=== PATIENT | male | born 1955 | race Caucasian/White ===

== ENCOUNTER 2024-11-18 12:08 | Emergency (ER) | payer MEDICARE, SELFPAY ==
--- NOTE | ~2024-11-18 | CT_ITS ---
Exam: CT abdomen and pelvis with contrast Clinical History: [Left flank pain. Left upper quadrant abdominal pain. Question recent stone ] Comparison: [ None available] Technique: Multiple axial CT images of the abdomen and pelvis were obtained with IV contrast. Sagittal and coronal reformatted images were obtained. FINDINGS: Lung bases: [Small left-sided pleural effusion. Moderate-sized consolidation in the left lower lobe. Small patchy opacities in the remaining portions of the visualized lower lungs. ] Liver: [ No mass.] [ No intrahepatic biliary duct dilatation.] Gallbladder: [ No wall thickening or stones.] Common bile duct: [ Normal caliber.] [ No stones.] Spleen: [ Within normal limits.] Pancreas: [ No mass. No pancreatic fluid collection.] Adrenals: [ No masses.] Kidneys: [ No masses. No hydronephrosis.][ There is a 9.1 cm left renal cyst in the superior pole of the left kidney.] Tiny bilateral nonobstructing renal stones. Lymph nodes: [ No adenopathy in the abdomen or pelvis.] Stomach, small bowel and colon: [ No bowel wall thickening or obstruction.] Peritoneum cavity: [ No mesenteric fat stranding or fluid.] Bladder: [ Unremarkable.] Prostate gland is moderately enlarged and partially calcified. Osseous structures: [ No acute fracture or destructive lesion.] [ Multilevel degenerative change in the visualized spine.] Abdominal aorta: [ No aneurysm.] Additional findings: Large right inguinal hernia with fat and bowel loops within the hernia sac. No bowel obstruction at this time. IMPRESSION: 1. Moderate-sized consolidation in the left lower lobe. Differential includes atelectasis and/or pneumonia. Recommend follow-up to resolution to exclude an underlying mass. 2. Small patchy opacities in the remaining portions of the lower lungs which represent atelectasis or infiltrates. 3. Small left-sided pleural effusion. 4. There is a 9.1 cm left renal cyst in the superior pole of the left kidney. 5. Tiny bilateral nonobstructing renal stones. 6. Large right inguinal hernia with fat and bowel loops within the hernia sac. No bowel obstruction at this time. 7. Prostate gland is moderately enlarged and partially calcified. If symptoms persist or worsen, consider a short-term follow-up study or additional imaging for further assessment. Reviewed, dictated and finalized at location Q. IMPRESSION: 1. Moderate-sized consolidation in the left lower lobe. Differential includes a telectasis and/or pneumonia. Recommend follow-up to resolution to exclude an un derlying mass. 2. Small patchy opacities in the remaining portions of the lower lungs which re present atelectasis or infiltrates. 3. Small left-sided pleural effusion. 4. There is a 9.1 cm left renal cyst in the superior pole of the left kidney. 5. Tiny bilateral nonobstructing renal stones. 6. Large right inguinal hernia with fat and bowel loops within the hernia sac. No bowel obstruction at this time. 7. Prostate gland is moderately enlarged and partially calcified. If symptoms persist or worsen, consider a short-term follow-up study or additio nal imaging for further assessment.
[2024-11-18 12:09] VITALS: BP 182/70; PULSE 105; RESP 28; TEMP 37.6; O2SAT 99
--- NOTE | 2024-11-18 12:25 | ED.ABDPAIN ---
HPI - Abdominal Pain General Chief Complaint: Abdominal Pain Stated Complaint: SHAKING Time Seen by Provider: 11/18/24 12:15 Source: patient and EMS Mode of arrival: EMS Limitations: no limitations History of Present Illness HPI narrative: This is a 69-year-old male with history of kidney stones and BPH who presents to the ED for left flank/left upper quadrant abdominal pain that worsened this morning. He states that he had this pain a week ago and was seen at an ED for this were a HIDA scan that did reveal some kidney stones. States he was discharged home was feeling better up until this morning. The pain has not migrated. Denies fevers, chills, nausea, vomiting, diarrhea, constipation. No prior surgeries. Related Data Allergies Allergy/AdvReac Type Severity Reaction Status Date / Time No Known Allergies Allergy Verified 11/18/24 12:12 Review of Systems Review of Systems: Gen.: Denies fevers or chills Eyes: Denies eye pain or visual change ENT: Denies congestion Respiratory: Denies shortness of breath or cough CV: Denies chest pain or palpitations GI: As per HPI denies burning, urgency, frequency or hematuria Musculoskeletal: Denies back pain or muscle pain Neuro: Denies numbness, tingling, weakness or focal weakness Skin: Denies rash Except as documented, all other systems reviewed and negative Exam Narrative: APPEARANCE: No acute distress, nontoxic, resting in bed EYES: EOMI HEENT: Normocephalic, atraumatic, OMM RESPIRATORY: No respiratory distress Clear to auscultation bilaterally with no rhonchi wheezing or rales. CARDIOVASCULAR: Regular rate and rhythm without murmurs rubs or gallops. ABDOMINAL: Soft, mild left upper quadrant tenderness to palpation. Negative CVA tenderness bilaterally. MUSCULOSKELETAl: Moves all extremities. No clubbing, cyanosis or edema. NEURO: Awake and alert. Following commands, speech normal, no focal deficits SKIN:: Warm, dry. No rashes lesions or abrasions PSYCHIATRIC: Normal affect/mood, Course Vital Signs Vital signs: Vital Signs Temperature 99.7 F H 11/18/24 12:09 Pulse Rate 105 H 11/18/24 12:09 Respiratory Rate 28 H 11/18/24 12:09 Blood Pressure 182/70 H 11/18/24 12:09 Pulse Oximetry 99 11/18/24 12:09 Oxygen Delivery Room Air 11/18/24 12:09 Temperature 99.7 F H 11/18/24 12:09 Pulse Rate 97 11/18/24 15:16 Respiratory Rate 20 11/18/24 15:16 Blood Pressure 121/64 11/18/24 15:16 Pulse Oximetry 94 11/18/24 15:16 Oxygen Delivery Room Air 11/18/24 12:09 MDM - Abdominal Pain MDM Narrative Medical decision making narrative: 69-year-old male presenting for left upper quadrant abdominal pain. On initial evaluation, patient was in no acute distress, afebrile but temperature 99.7?, hemodynamically stable. He is slightly tachycardic to the low 100s. He had mild left upper quadrant tenderness to palpation without CVA tenderness bilaterally. There is no rebound or guarding. He had a mild leukocytosis at 16.1 with a mild anemia 11.8. CT/pelvis did reveal a left lower lobe pneumonia with a large renal cyst. Believe that the patient's pain and borderline temperature is more consistent with a pneumonia in the setting of the leukocytosis. He will be given Augmentin. He was advised follow-up with PCP in the next week for re-evaluation. Patient was agreeable to this plan. Given strict return precautions. Differential Diagnosis Differential diagnosis: Likely other (Colitis, enterocolitis, ureterolithiasis, pyelonephritis, pneumonia) Medical Records Attestation: I reviewed the patient's medical records. Lab Data Attestation: I reviewed the patient's lab results. 11/18/24 12:37 11/18/24 12:37 Labs: Lab Results 11/18/24 11/18/24 Range/Units 12:37 14:31 WBC 16.1 H (4.5-10.0) K/mm3 RBC 4.38 L (4.6-6.20) M/mm3 Hgb 11.8 L (14.0-18.0) g/dL Hct 37.1 L (42.0-52.0) % MCV 84.7 (80-100) fl MCH 26.9 (26-34) pg MCHC 31.8 L (32-36) g/dl RDW 13.9 (11.5-14.5) % Plt Count 288 (150-375) k/mm3 MPV 9.4 (7.4-10.4) fl Immature Gran % (Auto) 0.7 H (0-0.5) % Neut % (Auto) 87.3 H (45.5-73.1) % Lymph % (Auto) 5.7 L (18.3-44.2) % [place] % (Auto) 5.5 (2.6-8.5) % Eos % (Auto) 0.4 (0-4.4) % Baso % (Auto) 0.4 (0.2-1.2) % Lymph # (Auto) 0.91 (0.9-3.2) K/mm3 [place] # (Auto) 0.9 H (0.1-0.6) K/mm3 Eos # (Auto) 0.1 (0-0.3) K/mm3 Baso # (Auto) 0.1 (0.0-0.1) K/mm3 Abs Immat Gran (auto) 0.11 H (0.00-0.031) K/mm3 Absolute Neuts (auto) 14.0 H (1.3-6.7) K/mm3 Absolute Nucleated RBC 0.000 (0.0-0.012) K/mm3 Nucleated RBC % 0.0 (0.0-0.2) % Sodium 135 L (137-145) mmol/L Potassium 4.5 (3.4-5.0) mmol/L Chloride 103 (98-107) mmol/L Carbon Dioxide 22 (22-30) mmol/L Anion Gap 10 (4-12) mmol/L BUN 20 (9-20) mg/dL Creatinine 0.72 (0.7-1.3) mg/dL Estim Creat Clear Calc 92 ml/min Estimated GFR > 60 (59 - ) Glucose 186 H (65-110) mg/dL Calcium 9.0 (8.4-10.2) mg/dL Total Bilirubin 0.8 (0.2-1.3) mg/dL AST 23 (17-59) U/L ALT 21 (6-50) U/L Alkaline Phosphatase 84 (38-126) U/L Total Protein 7.6 (6.3-8.2) g/dL Albumin 3.9 (3.5-5.1) g/dL Urine Color Yellow (Yellow) Urine Appearance Clear (Clear) Urine pH 5.5 (5.0-9.0) Ur Specific [place] > 1.045 H (1.001-1.035) Urine Protein Negative (Negative) mg/dL Urine Glucose (UA) Negative (Negative) mg/dL Urine Ketones Trace H (Negative) mg/dL Ur Blood (Man) 1+ H (Negative) Urine Nitrate Negative (Negative) Urine Bilirubin Negative (Negative) Urine Urobilinogen 1.0 (<2.0) mg/dL Leukocyte Esterase Rfl Negative (Negative) AMALIA/UL Urine RBC 6-10 H (0-2) /hpf Urine WBC 0-5 (0-3) /hpf Ur Squamous Epith Cells None seen (Few) /hpf Urine Bacteria None seen /hpf Urine Casts 0-2 Imaging Data Attestation: I personally reviewed and interpreted this imaging study as follows: (CT chest: Consolidation within left lower lobe. Large simple renal cyst to the left kidney.) Radiologist's impression: ITS Impressions Abdomen/Pelvis CT 11/18/24 13:40 IMPRESSION: 1. Moderate-sized consolidation in the left lower lobe. Differential includes atelectasis and/or pneumonia. Recommend follow-up to resolution to exclude an underlying mass. 2. Small patchy opacities in the remaining portions of the lower lungs which represent atelectasis or infiltrates. 3. Small left-sided pleural effusion. 4. There is a 9.1 cm left renal cyst in the superior pole of the left kidney. 5. Tiny bilateral nonobstructing renal stones. 6. Large right inguinal hernia with fat and bowel loops within the hernia sac. No bowel obstruction at this time. 7. Prostate gland is moderately enlarged and partially calcified. If symptoms persist or worsen, consider a short-term follow-up study or additional imaging for further assessment. ECG Data EKG #1: Attestation: I personally reviewed and interpreted this ECG as follows: ECG completion date: 11/18/24 ECG completion time: 12:13 Interpretation: Normal sinus rhythm rate of 98, normal axis intervals, no acute ST or T-wave changes. No prior immediately available to compare. Discharge Plan Discharge Clinical Impression: Renal cyst, Left nephrolithiasis CAP (community acquired pneumonia) Qualifiers: Laterality: left Lung location: lower lobe of lung Qualified Code(s): J18.9 - Pneumonia, unspecified organism Patient Disposition: Home Condition: Stable Instructions: Antibiotic Form, Pneumonia (ED), Kidney Cyst (ED) Additional Instructions: You were found to have pneumonia which is likely the source of your discomfort. Your given a prescription for Augmentin to take this as prescribed. You were also found to have kidney cyst and kidney stones, follow-up with urologist in the next few days for re-evaluation. Return to the ED for any new or worsening symptoms. For pain, discomfort or temperature greater than or equal to 100.8 ?F please alternate the following 2 medications as needed. First medication- acetaminophen/Tylenol- 1000mg every 6-8 hours as needed for above indications. Second medication- ibuprofen/Motrin-600mg every 6-8 hours as needed for above indication. Patient Language: Indonesian Prescriptions: New amoxicillin-pot clavulanate 875-125 mg tablet 1 tablet PO Q12H Qty: 14 0RF
--- NOTE | 2024-11-18 12:40 | ECG_ITS ---
Test Date: 2024-11-18 12:13:37 Measurements Intervals [place] Rate: 98 P: 45 MI: 163 QRS: 7 QRSD: 92 T: 52 QT: 368 QTc: 472 Interpretive Statements SINUS RHYTHM WARNING: DATA QUALITY MAY AFFECT INTERPRETATION No previous ECG available for comparison Electronically Signed On 11-18-2024 14:45:01 CDT by Harsha Anton M.D.
[2024-11-18 12:43] LABS: Hematocrit 37.1 % (42.0-52.0); Hemoglobin 11.8 g/dL (14.0-18.0); Immature Granulocyte Percent A 0.7 % (0-0.5); Lymphocytes Absolute Auto 0.91 K/mm3 (0.9-3.2); Mean Corpuscular HGB Conc 31.8 g/dl (32-36); Mean Corpuscular Hemoglobin 26.9 pg (26-34); Mean Corpuscular Volume 84.7 fl (80-100); Nucleated Red Blood Cells Absolute Auto 0.000 K/mm3 (0.0-0.012); Nucleated Red Blood Cells Perc 0.0 % (0.0-0.2); Platelet Count Result 288 k/mm3 (150-375); Red Blood Count 4.38 M/mm3 (4.6-6.20); White Blood Count 16.1 K/mm3 (4.5-10.0)
--- OUTSIDE RECORDS SUMMARY | 2024-11-18 12:45 | XMS_ITS | Patient Health Record ---
Author Organization [facility] Address [address] [place] [address] Care Team Providers Care Honeycomb Decapper Name Role Phone iMke Linda DO Primary Care Provider Unavailab le Reason For Referral No Information Problems Problem Type SNOMED Code ICD Code Onset Dates Problem Status W/U Status Risk Notes Problem [id number] Personal history of colonic polyps (Z86.010) Active confirmed Problem [id number] Diverticula of colon (K57.30) Active confirmed Plan Of Treatment No Information Insurance Providers Payer Name Payer Address Payer Phone Subscriber Number Group Number Insured Name Patient Relationship to Insured Coverage Start Date Coverage End Date Myriam SORIANO [address] [place] [address] [phone] [id number] Gary Dewey Self - patient is the insured
[2024-11-18] MEDS: ONDANSETRON INJ 4 MG/2 ML VIAL IV PUSH (12:46)
[2024-11-18] MEDS: SODIUM CHLORIDE 0.9% IV 1,000 ML 999 ML IV CONT (12:46)
[2024-11-18] MEDS: MORPHINE SULFATE (*CRX) 4 MG/ML INJ IV PUSH (12:46)
--- OUTSIDE RECORDS SUMMARY | 2024-11-18 12:46 | XMS_ITS | Clinical Summary ---
Author Organization [facility] Address [address] [place] [address] Care Team Providers Care Hydroelectric Plant Operator Name Role Phone Mike Lnida DO Primary Care Provider [phone] Source Comments [facility],non-owned Affiliates and Associated Physician Practices is amultiple site organization consisting of ambulatory clinics and hospital sitesin [place], [place], [place] and [place]. This disclosure is being madepursuant to the Care Everywhere program and may not contain all information available regarding this patient. Last updated 17.[facility] Allergies No known active allergies Medications * Be aware that medications may not be up to date on this document. Alwaysverify current medications with the patient. BABY ASPIRIN PO Take 1 tablet by mouth once daily Active finasteride (Proscar) 5 MG tablet Take 1 (one) tablet by mouth once daily 5 Active metFORMIN ER 24hr (Glucophage XR) 500 MG tablet Take 1 (one) tablet by mouth daily with breakfast 5 Active rosuvastatin (Crestor) 10 MG tablet Take 1 (one) tablet by mouth at bedtime 5 Active tamsulosin (Flomax) 0.4 MG capsule TAKE 1 CAPSULE BY MOUTH EVERY EVENING AFTER DINNER 5 Active meloxicam (Mobic) 7.5 MG tablet Take 1 (one) tablet by mouth once daily 30 tablet 1 Active Active Problems Problem Noted Date Diagnosed Date Closed displaced fracture of proximal phalanx of right middle finger 08/18/2019 Encounters Date Type Department Care Team Description 11/12/2024 12:37 PM CDT - 11/12/2024 11:59 PM CDT Hospital Encounter [facility] [address] [place] [address] Bonny Aguirre APRN-CNP Discharge Disposition: Home or Self Care 11/12/2024 10:58 AM CDT - 11/12/2024 12:36 PM CDT Hospital Encounter [facility] [address] [place] [address] Bonny Aguirre APRN-CNP Discharge Disposition: Home or Self Care 09/18/2024 2:45 PM CDT - 09/18/2024 11:59 PM CDT Hospital Encounter [facility] [address] [place] [address] Jose Roberto Aguilar, LONGITUDINAL FLOAT OPERATOR-Rosemarie Short APRN-CNP Discharge Disposition: Home or Self Care 09/01/2024 9:00 AM CDT Office Visit [facility] - Orthopedic Surgery [address] [place] [phone] Jackie Durbin PA Primary osteoarthritis of left knee (Primary Dx); Acute pain of left knee; Pes anserinus bursitis of left knee 09/01/2024 Travel 08/30/2024 10:21 AM CDT - 08/30/2024 11:59 PM CDT Hospital Encounter [facility] [address] [place] [address] Rosemarie Wiggins APRN-CNP Discharge Disposition: Home or Self Care 08/30/2024 9:50 AM CDT - 08/30/2024 10:20 AM CDT Hospital Encounter [facility] [address] [place] [address] Bolivar Brown MD Chandler, Angela L, LONGITUDINAL FLOAT OPERATOR-PLANNING SUPERVISOR Discharge Disposition: Home or Self Care from Last 3 Months Social History Tobacco Use Types Packs/Day Years Used Date Smoking Tobacco: Never Smokeless Tobacco: Never Tobacco Cessation:Counseling Given: Not Answered Alcohol Use Standard Drinks/Week Comments Yes 1 (1 standard drink = 0.6 oz pur e alcohol) 1 aday AUDIT-C Answer Date Recorded Frequency of Alcohol Consumption 2-3 times a wee k 03/19/2019 Average Number of Drinks Not on file 020 Frequency of Binge Drinking Not on file 02/20 PHQ-2 Answer Date Recorded Patient Health Questionnaire-2 Score 0 08/31/2024 Sex and Gender Information Value Date Recorded Sex Assigned at Not on file Legal 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 Gender Identity Not on file Sexual Orientation Not on file Last Filed Vital Signs Vital Sign Reading Time Taken Comments Blood Pressure 141/75 11/12/2024 11:38 AM CDT Pulse 67 11/12/2024 11:38 AM CDT Temperature 36.5 C (97.7 F) 11/12/2024 11:38 AM CDT Respiratory Rate 16 11/12/2024 11:38 AM CDT Oxygen Saturation 98% 11/12/2024 11:38 AM CDT Inhaled Oxygen Concentration - - Weight 79.4 kg (175 lb) 11/12/2024 11:38 AM CDT Height 180.3 cm (5' 11) 11/12/2024 11:38 AM CDT Body Mass Index 24.41 11/12/2024 11:38 AM CDT Plan of Treatment Health Maintenance Due Date Last Done Comments COLOGUARD (AGES 45-75) - COLON CA SCREENING 1957 COLON MONITORING 1957 COLONOSCOPY - COLON CA SCREENING 1957 CT COLONOGRAPHY - COLON CA SCREENING 1957 Colorectal Cancer Screening 1957 FIT - COLON CA SCREENING 1957 FLEX SIG - COLON CA SCREENING 1957 HEPATITIS C SCREENING 09/30/1975 DTAP/TDAP/TD VACCINES (1 - Tdap) 1976 PNEUMOCOCCAL VACCINE 50+ (1 of 1 - PCV) 10/05/2007 ZOSTER VACCINE (1 of 2) 10/05/2007 MEDICARE AWV CALENDAR YEAR 2024 COVID-19 VACCINE ( season) 2024 06/14/2023, 11/28/2022, 12/26/2021, Additional history exists INFLUENZA VACCINE (#1) 2024 11/28/2022, 2021 Respiratory Syncytial Virus (RSV) Vaccine Pt: or over 60 yrs (1 - 1-dose 75+ series) 2032 DEPRESSION SCREENING Completed 08/30/2024 HEPATITIS B VACCINE Aged Out No longe r eligible based on patient's age to complete this topic HIB VACCINE Aged Out No longer eligi ble based on patient's age to complete this topic HPV VACCINE Aged Out No longer eligi ble based on patient's age to complete this topic MENINGOCOCCAL (Group B) VACCINE SHARED DECISION-MAKING Aged Out No longer eligible based on patient's age to complete this topic MENINGOCOCCAL GROUPS A/C/Y/W VACCINE Aged Out No longer eligible based on patient's age to complete this topic Goals Goal Patient Goal Type Associated Problems Recent Progress Patient-Stated? Author Mobility General No Samara Tom, RN Note: Expected end date: 05/21/2019 The goal is to maintain or improve your mobility at the optimum level for you. Interventions: Procedures Procedure Name Priority Date/Time Associated Diagnosis Comments URINALYSIS - POCT (IP) URGENT CARE Routine 11/12/2024 1:02 PM CDT Left upper quadrant abdominal pain XR ABDOMEN KUB STAT 11/12/2024 12:44 PM CDT Left upper quadrant abdominal pain STREP A SCREEN - POCT (IP) URGENT CARE Routine 09/18/2024 3:09 PM CDT Sorethroat SARS-COV-2 (COVID-19) AG (IP) POCT Routine 09/18/2024 3:08 PM CDT Sorethroat XR KNEE LEFT 3VW STAT 08/30/2024 10:3 0 AM CDT Acute pain of left knee from Last 3 Months Results * (ABNORMAL) URINALYSIS - POCT (IP) URGENT CARE (11/12/2024 1:02 PM CDT) Glucose UA neg Negative [facility] Bilirubin UA 1+ Negative [facility] Ketone UA 2+ Negative [facility] Specific [place] UA POCT 1.030 1.000 - 1.030 [facility] Blood UA 3+ Negative [facility] pH UA 5.0 5.0 - 8.0 pH units [facility] Protein UA trace Negative [facility] Urobilinogen UA 0.2 0.2 - 1.0 EU/dL [facility] Nitrite UA neg Negative [facility] Leukocyte UA trace Negative [facility] QC Verified Yes Yes [facility] Urine URINE / Unknown 11/12/2024 1 :02 PM CDT Bonny Schroeder LONGITUDINAL FLOAT OPERATOR-PLANNING SUPERVISOR LAB - POINT OF CARE ORDERABLES Final Result [facility] [address] [phone] * XR Abdomen Kub (11/12/2024 12:44 PM CDT) Anatomical Region Laterality Modality Abdomen Digital Radiogra phy 11/12/2024 1:00 PM CDT Impressions 11/12/2024 1:02 PM CDT IMPRESSION: Increased colonic fecal loading Left basilar lung opacity. Atelectasis? > Interpreting Provider: Grabiel Davis MD on 11/12/2024 1:02 PM Narrative 11/12/2024 1:02 PM CDT PROCEDURE: XR ABDOMEN KUB DATE/TIME OF EXAM: 11/12/2024 12:44 PM CLINICAL INFORMATION: None relevant/not provided if blank. Indication: R10.12: Left upper quadrant abdominal pain Additional History: COMPARISON: None. FINDINGS: There is increased fecal loading in the ascending, portions of the descending colon and in the rectum. Scattered gas within the small bowel which is borderline enlarged up to 2.8 cm. No gastric distention. There is some opacity in the left lung base near the diaphragm, possibly atelectasis Procedure Note Grabiel Davis MD - 11/12/2024 PROCEDURE: XR ABDOMEN KUB DATE/TIME OF EXAM: 11/12/2024 12:44 PM CLINICAL INFORMATION: None relevant/not provided if blank. Indication: R10.12: Left upper quadrant abdominal pain Additional History: COMPARISON: None. FINDINGS: There is increased fecal loading in the ascending, portions of the descending colon and in the rectum. Scattered gas within the smallbowel which is borderline enlarged up to 2.8 cm. No gastric distention.There is some opacity in the left lung base near the diaphragm, possibly atelectasis IMPRESSION: Increased colonic fecal loading Left basilar lung opacity. Atelectasis? > Interpreting Provider: Grabiel Davis MD on 11/12/2024 1:02 PM Bonny Schroeder LONGITUDINAL FLOAT OPERATOR-PLANNING SUPERVISOR DIAGNOSTIC IMAGING ORDERABLES Final Result * STREP A SCREEN - POCT (IP) URGENT CARE (09/18/2024 3:09 PM CDT) [facility] Strep A Rapid POCT Negative Negative [facility] QC Verified Yes Yes [facility] Throat ENTIRE ANTERIOR SURFACE OF NECK / Unknown 09/18/2024 3:09 PM CDT Rosemarie Wiggins LONGITUDINAL FLOAT OPERATOR-PLANNING SUPERVISOR LAB - POINT OF CARE O RDERABLES Final Result [facility] [address] [place] [address], [facility] [phone] * (ABNORMAL) SARS-COV-2 (COVID-19) AG (IP) POCT (09/18/2024 3:08 PM CDT) [facility] SARS-CoV-2 Ag Positive(A) Negative [facility] Lot # [id number] [facility] Expiration Date 04/26/25 [facility] Instrument Serial Number n/a [facility] COVID Internal Control Acceptable Acceptable [facility] Microbiology SPECIMEN FROM NASAL FOSSAE / Unknown 09/18/2024 3:08 PM CDT Narrative [facility] - 09/18/2024 3:08 PM CDT SARS-CoV-2 antigen testing is authorized for use with nasal (Quidel, Veritor, BinaxNOW, or Rozina) or nasopharyngeal (Rozina) swabs collected from individuals who are suspected of COVID-19 infection by their healthcare provider within the first five days of onset of symptoms. False-positive SARS-CoV-2 test results are more likely to occur when disease prevalence is low (less than 1%). False-negative SARS-CoV-2 test results are more likely to occur when disease prevalence is high (greater than 10%). This test has been authorized by the Food and Drug administration (FDA)under an Emergency Use Authorization (EUA). This test is only authorized for the duration of time the declaration that circumstances exist justifying the authorization of emergency use of in vitro diagnostic tests for detection of SARS-CoV-2 virus and/or diagnosis of COVID-19 infection under section 564(b)(1) of the Act, 21 U.S.C 360bbb-3 (b)(1), unless the authorization is terminated or revoked sooner. Fact Sheets for this EUA assay are available upon request. Negative results should be treated as presumptive and confirmation with a molecular assay, if necessary, for patient management, may be performed. Negative results do not rule out COVID-19 and should not be used as the sole basis for treatment or patient management decisions, including infection control decisions. Negative results should be considered in the context of a patient's recent exposures, history and the presence of clinical signs and symptoms consistent with COVID-19. Rosemarie Wiggins LONGITUDINAL FLOAT OPERATOR-PLANNING SUPERVISOR LAB - POINT OF CARE O RDERABLES Final Result [facility] [address] [place], [place] [address] [phone] * XR Knee Left 3Vw (08/30/2024 10:30 AM CDT) Anatomical Region Laterality Modality Lower Extremity Digital Radiogra phy 08/30/2024 10:3 6 AM CDT Narrative 08/30/2024 10:38 AM CDT Procedure: XR KNEE LEFT 3VW Exam Date: 08/30/2024 10:32 AM Location: [facility] Indication: M25.562: Acute pain of left knee Findings/impression: No old studies are available for comparison purposes. Please note 2 views of the knee could miss abnormalities. There is narrowing of the medial compartment. The lateral compartment is maintained. There is no evidence of fracture. There is some spurring along the origins of the patella. There is some calcification involving the quadriceps tendon. There may be a small joint effusion. There is no acute bony abnormality. > Interpreting Provider: Prince Palacios MD on 08/30/2024 10:38 AM Procedure Note Prince Palacios MD - 08/30/2024 Procedure: XR KNEE LEFT 3VW Exam Date: 08/30/2024 10:32 AM Location:[facility] Indication: M25.562: Acute pain of left knee Findings/impression: No old studies are available for comparison purposes. Please note 2views of the knee could miss abnormalities. There is narrowing of the medial compartment. The lateral compartment is maintained. There is no evidence of fracture. There is some spurringalong the origins of the patella. There is some calcification involving the quadriceps tendon. There may be a small joint effusion. There is noacute bony abnormality. > Interpreting Provider: Prince Palacios MD on 08/30/2024 10:38 AM Rosemarie Wiggins LONGITUDINAL FLOAT OPERATOR-PLANNING SUPERVISOR DIAGNOSTIC IMAGING OR DERABLES Final Result from Last 3 Months Insurance [facility] MANAGED MEDICARE [facility] Care Teams Hydroelectric Plant Operator Relationship Specialty Start Date End Date Mike Linda DO [address] [place] [address] PCP - General Family Medicine 08/25/21
[2024-11-18 12:51] VITALS: BP 150/65; PULSE 99; RESP 22; O2SAT 93
[2024-11-18 12:54] LABS: Alanine Aminotransferase 21 U/L (6-50); Albumin Level 3.9 g/dL (3.5-5.1); Alkaline Phosphatase 84 U/L (38-126); Anion Gap 10 mmol/L (4-12); Aspartate Amino Transferase 23 U/L (17-59); Bilirubin,Total 0.8 mg/dL (0.2-1.3); Blood Urea Nitrogen 20 mg/dL (9-20); Calcium 9.0 mg/dL (8.4-10.2); Carbon Dioxide 22 mmol/L (22-30); Chloride 103 mmol/L (98-107); Estimated CRCL calculation 92 ml/min; Estimated Glomerular Filt Rate > 60; Glucose 186 mg/dL (65-110); Potassium 4.5 mmol/L (3.4-5.0); Sodium 135 mmol/L (137-145); Total Protein 7.6 g/dL (6.3-8.2)
[2024-11-18 14:38] LABS: Add Urine Microscopic? YES; Appearance Urine Clear (Clear); Glucose Urine UA Negative (Negative); Leukocyte Esterase Ur Negative LEU/UL (Negative); Nitrate Urine Negative (Negative); Non Pathogenic Casts 0-2; Specific Grav Ur > 1.045 (1.001-1.035)
[2024-11-18 15:16] VITALS: BP 121/64; PULSE 97; RESP 20; O2SAT 94
== END 2024-11-18 15:18 | disposition home or self-care (01) ==
PROVIDERS: Emergency Medicine; Emergency Provider Student in an Organized Health Care Education/Training Program
DX: J18.9 Pneumonia, unspecified organism (principal); N28.1 Cyst of kidney, acquired; N20.0 Calculus of kidney; N40.0 Benign prostatic hyperplasia without lower urinary tract symptoms; Z87.442 Personal history of urinary calculi; K40.90 Unilateral inguinal hernia, without obstruction or gangrene, not specified as recurrent
CPT/HCPCS: 36415; 74177; 80053; 81001; 85025; 93005; 96361; 96374; 96375; 99284; J2270; J2405; J7030; Q9967